=== PATIENT | female | born 1995 | race Caucasian/White ===

== ENCOUNTER 2017-10-15 09:25 | Inpatient (IN) | END 2017-10-18 10:50 | disposition home or self-care (01) | DRG 782 ==

== ENCOUNTER 2017-10-20 10:39 | Outpatient (CLI) | END 2017-10-20 13:52 | disposition home or self-care (01) ==

== ENCOUNTER 2017-10-23 09:42 | Outpatient (CLI) | END 2017-10-23 11:20 | disposition home or self-care (01) ==

== ENCOUNTER 2017-10-24 16:25 | Outpatient (CLI) | END 2017-10-24 18:40 | disposition home or self-care (01) ==

== ENCOUNTER 2017-11-01 19:42 | Outpatient (CLI) | END 2017-11-01 22:18 | disposition home or self-care (01) ==

== ENCOUNTER 2017-11-17 22:08 | Inpatient (IN) | END 2017-11-20 18:55 | disposition home or self-care (01) | DRG 775 ==